=== PATIENT | male | born 1950 | race Caucasian/White ===

== ENCOUNTER 2018-05-24 00:50 | Observation (INO) | payer MEDICARE ==
[2018-05-24] MEDS ORDERED: Albuterol 2.5 MG/3 ML NEB.SOL* (0.083%) INH ONE (01:20)
[2018-05-24] MEDS ORDERED: Albuterol/Ipratropium NEB.SOL* Albuterol 2.5 MG/Ipratropium 0.5 MG 3 ML INH ONE (01:20)
[2018-05-24] MEDS ORDERED: Codeine TAB* 30 MG PO ONE (01:21)
--- NOTE | 2018-05-24 01:22 | ED ---
HPI Cardiac - HPI Summary HPI Summary: This patient is a 68 year old male presenting to [facility] accompanied by family with a chief complaint of cough and chest pain since 1 hour ago. Patient states that he was completely asymptomatic when he suddenly developed a cough. The pain is rated 6/10 in severity. Symptoms aggravated by nothing. Symptoms alleviated by nothing. Patient states that the left side of the face is numb and left side of body is generally numb, but patient can ambulate without assistance. Patient additionally reports diaphoresis. Patient denies fever, nausea. Patient reports a history of PE, hypercoagulability. Patient denies a hx of a fib. - History of Current Complaint Stated Complaint: COUGH Hx Obtained From: Patient Onset/Duration: Started Hours Ago, Still Present Timing: Constant Current Severity: Moderate Pain Intensity: 6 Pain Scale Used: 0-10 Numeric Chest Pain Location: Diffuse Chest Pain Radiates: No Aggravating Factor(s): Nothing Alleviating Factor(s): Nothing Associated Signs and Symptoms: Positive: Negative - fever, nausea, Other: - diaphoresis - Allergy/Home Medications Allergies/Adverse Reactions: Allergies Allergy/AdvReac Type Severity Reaction Status Date / Time Penicillins Allergy Unknown Verified 05/24/18 00:57 Reaction Details Home Medications: Home Medications Acetaminophen [Tylenol Extra Strength] 1,000 mg PO Q4HR PRN 05/24/18 [History Confirmed 05/24/18] Aspirin 81 mg PO DAILY 05/24/18 [History Confirmed 05/24/18] Carbidopa/Levodopa/Entacapone [Carbidopa/Levodopa/Entaca 25-100-200 mg] 2 tab PO DAILY 05/24/18 [History Confirmed 05/24/18] Carvedilol 3.125 mg PO BID 05/24/18 [History Confirmed 05/24/18] Dalteparin(*) [Fragmin(*)] 5,000 units .SEE ORDER SEE INSTRUCTIONS PRN 05/24/18 [History Confirmed 05/24/18] Gabapentin CAP(*) [Neurontin 300 CAP(*)] 600 mg PO TID 05/24/18 [History Confirmed 05/24/18] Isosorbide Mononitrate [Isosorbide Mononitrate ER] 30 mg PO DAILY 05/24/18 [ History Confirmed 05/24/18] Levothyroxine TAB* [Synthroid TAB*] 125 mcg PO DAILY 05/24/18 [History Confirmed 05/24/18] Losartan TAB* 100 mg PO DAILY 05/24/18 [History Confirmed 05/24/18] Multivitamin [Once Daily] 1 tab PO DAILY 05/24/18 [History Confirmed 05/24/18] Nitroglycerin TAB 0.4 MG* 0.4 mg SL . NEEDED PRN 05/24/18 [History Confirmed 05/24/18] Pantoprazole Sodium 40 mg PO DAILY 05/24/18 [History Confirmed 05/24/18] Ranolazine (NF) [Ranexa (NF)] 500 mg PO BID 05/24/18 [History Confirmed 05/24/18 ] Rivaroxaban TAB(*) [Xarelto 20 mg] 20 mg PO DAILY 05/24/18 [History Confirmed ] Rosuvastatin Calcium 10 mg PO DAILY 05/24/18 [History Confirmed 05/24/18] Tramadol HCl 100 mg PO Q4HR PRN 05/24/18 [History Confirmed 05/24/18] PMH/Surg Hx/FS Hx/Imm Hx Previously Healthy: No Endocrine/Hematology History: Reports: Hx Anticoagulant Therapy Cardiovascular History: Denies: Hx Atrial Fibrillation Respiratory History: Reports: Hx Pulmonary Embolism Opthamlomology History: Denies: Hx Legally Blind EENT History: Denies: Hx Deafness Infectious Disease History: No Infectious Disease History: Denies: Traveled Outside the [place] in Last 30 Days - Family History Known Family History: Positive: Hypertension - Social History Lives: With Family Alcohol Use: None Hx Substance Use: No Substance Use Type: Reports: None Hx Tobacco Use: No Smoking Status (MU): Never Smoked Tobacco Review of Systems Positive: Skin Diaphoresis. Negative: Fever Positive: Chest Pain Positive: Cough Negative: Nausea All Other Systems Reviewed And Are Negative: Yes Physical Exam - Summary Physical Exam Summary: VITAL SIGNS: Reviewed. GENERAL: Patient is a well-developed and nourished male who is lying comfortable in the stretcher. Patient is not in any acute respiratory distress. HEAD AND FACE: No signs of trauma. No ecchymosis, hematomas or skull depressions. No sinus tenderness. EYES: PERRLA, EOMI x 2, No injected conjunctiva, no nystagmus. EARS: Hearing grossly intact. Ear canals and tympanic membranes are within normal limits. MOUTH: Oropharynx within normal limits. NECK: Supple, trachea is midline, no adenopathy, no JVD, no carotid bruit, no c- spine tenderness, neck with full ROM. CHEST: Symmetric, no tenderness at palpation LUNGS: Dry cough in ED. Decreased breath sounds bilaterally CVS: Regular rate and rhythm, S1 and S2 present, no murmurs or gallops appreciated. ABDOMEN: Soft, non-tender. No signs of distention. No rebound no guarding, and no masses palpated. Bowel sounds are normal. EXTREMITIES: FROM in all major joints, no edema, no cyanosis or clubbing. NEURO: Alert and oriented x 3. No acute neurological deficits. Speech is normal and follows commands. SKIN: Dry and warm Triage Information Reviewed: Yes Vital Signs On Initial Exam: Initial Vitals Temp Pulse Resp BP Pulse Ox 98.0 F 78 16 150/92 100 05/24/18 00:50 05/24/18 00:50 05/24/18 00:50 05/24/18 00:50 05/24/18 00:50 Vital Signs Reviewed: Yes Diagnostics - Vital Signs Vital Signs Temp Pulse Resp BP Pulse Ox 05/24/18 00:50 98.0 F 78 16 150/92 100 - Laboratory Result Diagrams: 05/24/18 01:33 05/24/18 01:33 Lab Statement: Any lab studies that have been ordered have been reviewed, and results considered in the medical decision making process. - Radiology CXR Radiology Interpretation Completed By: ED Physician Summary of Radiographic Findings: CXR reveals no acute process. Pending official report. - EKG 0106 Cardiac Rate: NL EKG Rhythm: Sinus Rhythm - 73 BPM Summary of EKG Findings: An EKG, taken 0106, reveals NSR (74 BPM), 1st degree aV block, LVH, nonspecific t wave changes in inferior leads Disposition - Course Assessment/Plan: This patient is a 68 year old male presenting to [facility] accompanied by family with a chief complaint of cough and chest pain since 1 hour ago. Patient states that he was completely asymptomatic when he suddenly developed a cough. An EKG, taken 010, reveals NSR (74 BPM), 1st degree aV block , LVH, nonspecific t wave changes in inferior leads. CXR reveals no acute process. Pending official report. Bloodwork Obtained. In the ED course the patient was given albuterol, codeine, morphine, Zofran. The pt is hemodynamically stable, alert and oriented x3. We paged Dr. De Paz (Hospitalist) at 0233 to discuss patient care and possible admission. We discussed patient care with Dr. De Paz (Hospitalist) at 0303 and they agreed to admit the patient. Patient will be admitted with a dx of chest pain. The patient is agreeable with this plan. - Diagnoses Provider Diagnoses: Chest pain - Physician Notifications Discussed Care Of Patient With: Lakeisha De Paz - hospitalist Time Discussed With Above Provider: 03:03 - We discussed patient care with Dr. De Paz (Hospitalist) at 0303 and they agreed to admit the patient. Patient will be admitted with a dx of chest pain Discharge - Sign-Out/Discharge Documenting (check all that apply): Patient Departure - Discharge Plan Condition: Stable Disposition: ADMITTED TO [facility] - Attestation Statements Document Initiated by Scribe: Yes Documenting Scribe: Jet Ornelas Provider For Whom Gurpreete is Documenting (Include Credential): Anselmo Lopez MD Scribe Attestation: Jet Guadalupe, scribed for Anselmo Lopez MD on 05/24/18 at 0304. Status of Scribe Document: Ready
[2018-05-24 01:46] LABS: ABS Basophils 0 10^3/ul (0-0.2); ABS Eosinophils 0.4 10^3/ul (0-0.6); ABS Lymphocytes 2.6 10^3/ul (1.0-4.8); ABS Monocytes 0.8 10^3/ul (0-0.8); ABS Neutrophils 3.7 10^3/ul (1.5-7.7); ABS Nucleated RBC 0 10^3/ul; Eosinophil % 5.7 %; Hematocrit 43 % (42-52); Hemoglobin 14.8 g/dl (14.0-18.0); Lymphocyte % 34.8 %; Mean Corpuscular HGB Conc 34 g/dl (31-36); Mean Corpuscular Hemoglobin 31 pg (27-31); Mean Corpuscular Volume 91 fL (80-94); Mean Platelet Volume 7.2 fL (7.4-10.4); Nucleated Red Blood Cells % 0.1; Platelet Count 182 10^3/ul (150-450); Red Blood Count 4.74 10^6/ul (4.00-5.40); Red Cell Distribution Width 13 % (10.5-15); White Blood Count 7.6 10^3/ul (3.5-10.8)
[2018-05-24 02:02] LABS: ALT 24 U/L (7-52); AST 19 U/L (13-39); Albumin/Globulin Ratio 1.7 (1-3); Alkaline Phosphatase 89 U/L (34-104); Anion Gap 6 mmol/L (2-11); BUN/Creatinine Ratio 19.5 (8-20); Blood Urea Nitrogen 22 mg/dL (6-24); CO2 Carbon Dioxide 25 mmol/L (22-32); Calcium 9.4 mg/dL (8.6-10.3); Chloride 107 mmol/L (101-111); EGFR Non-African American 64.3 (>60); Globulin 2.4 g/dL (2-4); Glucose 114 mg/dL (70-100); Potassium 4.3 mmol/L (3.5-5.0); Sodium 138 mmol/L (135-145); Total Protein 6.4 g/dL (6.4-8.9)
[2018-05-24 02:07] LABS: INR 1.55 (0.77-1.02)
[2018-05-24 02:16] LABS: Activated Partial Thrombo Time 35.7 seconds (26.0-36.3)
[2018-05-24] MEDS ORDERED: Morphine VIAL* 4 MG/ML VIAL (1 ml vial) IV ONE (02:35)
[2018-05-24] MEDS ORDERED: Ondansetron INJ* 2 MG/ML VIAL IV ONE (02:35)
[2018-05-24] MEDS ORDERED: Albuterol 2.5 MG/3 ML NEB.SOL* (0.083%) INH PRN (03:06)
[2018-05-24] MEDS ORDERED: traMADol TAB* 50 MG PO PRN (03:12)
[2018-05-24] MEDS ORDERED: Nitroglycerin TAB 0.4 MG* 0.4 MG TAB SL PRN (03:12)
[2018-05-24] MEDS ORDERED: Albuterol/Ipratropium NEB.SOL* Albuterol 2.5 MG/Ipratropium 0.5 MG 3 ML INH PRN (03:19)
[2018-05-24] MEDS ORDERED: GuaiFENesin DM* 5 ML UDC PO PRN (03:19)
[2018-05-24 03:33] LABS: Alcohol < 10 mg/dL (<10)
--- NOTE | 2018-05-24 04:31 | ADMNOTE ---
Subjective Date of Service: 05/24/18 Interval History: code status full this is admission h/p pcp in [facility] ( VISITING HERE FROM [place] BUT WILL STAY UNTIL JUN 02 2018) hpi this is a 68 yr old wm with of cad with one v cabg 1999 ( 2017 stress showed patent vessel except leaky valve/ ? mr with pul htn ) paf, pe twice currently on xeralto ( would use prn dalteparin if on the flight or long distance travel ) hx of cva with residual left facial numbness/ left lateral leg numbness was brought in by family after pt was found to have chest pain followed by severe cough. pt says he was lying in bed and started to have chest pain which has been progresssively worsening for the past 3 days. intensity increased from 2-3/ 10 to 6-7/10. pain described as intermittant ( each episode would last 2-3 min ) sharp left anterior chest pain radiating down to his left arm. he took 3 sl nitro with no relief. pt started to cough which made the chest pain even worse. tonight he looked tachypenia to her [id number] who is Vet Dr. family decided to take pt to er for eval. he got morphine/zofran/albuterol/codeine from er. pt was not in any respiratory distress or tachypenia when seen but still has chest pain level 3/10. intial ekg and trop were neg chest x ray did not reveal any acute changes. phx/pshx possible copd due to hx of prn smoking himself and 2nd hand smoke from but quit 29 yrs ago cad s/p cabg with one vessel 1999 no stents placed afterwards last stress was 2016 ---> patent vessels ? mr with pul regurg pt only knows he has pul htn but says the cardio in [place] has been thinking about surgically repair if the regurg is getting worse ---> last echo was one yr ago will have repeat echo with pcp 07/2018 restless legs on sinemet and neurontin ( placed on both in [place] ) cva with residual left facial numbness/left lateral leg numbenss 03/2017 tia htn pvd spinal stenosis from l3-l5 not surg respairable with consequent le neuropathy ( lle > rle ) and sciatica hx of pe twice has been on xeralto/ prn dalteparin when on long distance travel/ flight ( hypercoag study done were neg but done in [place] ) paf gerd with hiatal hernia social hx of cig smoke prn but quit at least 30 yrs ago 2 glasses of wine twice per yr, no ivda walks indep lives in [place] fhx father parkinson one cousin has blood clot problem mom htn and cad brohter cad/pvd Review of Systems - Measurements Intake and Output: Intake and Output Last 24 Hours 05/21/18 05/22/18 05/23/18 05/24/18 06:59 06:59 06:59 06:59 Weight 168 lb - Review of Systems General Comments: pertinent as per hpi Objective Active Medications: Albuterol (Ventolin 2.5 Mg/3 Ml Neb.Anastacia*) 2.5 mg INH [id number] AWAKE PRN PRN Reason: sob/wheezing Albuterol/Ipratropium (Duoneb (Albuterol 2.5 Mg/Ipratropium 0.5 Mg)) 1 neb INH Q4H PRN PRN Reason: SOB/WHEEZING Aspirin (Aspirin 81 Mg Chew Tab*) 81 mg PO DAILY [facility] Atorvastatin Calcium (Lipitor*) 20 mg PO DAILY [facility]; Protocol Carvedilol (Coreg Tab*) 3.125 mg PO BID [facility] Gabapentin (Neurontin Cap(*)) 600 mg PO TID [facility] Guaifenesin/Dextromethorphan (Robitussin Dm*) 10 ml PO Q4H PRN PRN Reason: COUGH Sodium Chloride (Ns 0.9% 1000 Ml*) 1,000 mls @ 100 mls/hr IV PER RATE [facility] Isosorbide Mononitrate (Imdur Er Tab*) 60 mg PO DAILY [facility] Levothyroxine Sodium (Synthroid Tab*) 125 mcg PO 0600 [facility] Losartan Potassium (Cozaar Tab*) 100 mg PO DAILY [facility] Multivitamins ( Vitamin Tab*) 1 tab PO DAILY [facility] Nitroglycerin (Nitroglycerin Tab 0.4 Mg*) 0.4 mg SL .EVERY 5 MINUTES PRN PRN Reason: c/p Non-Formulary Medication (Carbidopa/Levodopa/Entacapone [Carbidopa-Levodopa 100 Mg-Enta]) 2 tab PO DAILY [facility] Omeprazole (Prilosec Cap*) 20 mg PO DAILY [facility] Ranolazine (Ranexa (Nf)) 500 mg PO BID [facility]; Protocol Rivaroxaban (Xarelto(*)) 20 mg PO DAILY [facility] Tramadol HCl (Ultram*) 100 mg PO Q4HR PRN PRN Reason: PAIN Vital Signs - 8 hr 05/24/18 05/24/18 05/24/18 00:50 01:03 01:04 Temperature 98.0 F Pulse Rate 78 84 73 Respiratory 16 Rate Blood Pressure 150/92 137/89 (mmHg) O2 Sat by Pulse 100 100 100 Oximetry 05/24/18 05/24/18 05/24/18 01:34 01:40 01:42 Temperature Pulse Rate 71 74 70 Respiratory 15 18 18 Rate Blood Pressure 155/81 (mmHg) O2 Sat by Pulse 100 100 100 Oximetry 05/24/18 05/24/18 05/24/18 02:00 02:03 02:33 Temperature Pulse Rate 68 69 74 Respiratory 10 19 11 Rate Blood Pressure 146/86 167/88 (mmHg) O2 Sat by Pulse 100 100 98 Oximetry 05/24/18 05/24/18 05/24/18 03:00 03:02 03:03 Temperature Pulse Rate 72 79 Respiratory 17 18 19 Rate Blood Pressure 159/95 (mmHg) O2 Sat by Pulse 97 98 Oximetry 05/24/18 05/24/18 03:33 03:48 Temperature 0 F Pulse Rate 72 0 Respiratory 15 0 Rate Blood Pressure 170/91 0/0 (mmHg) O2 Sat by Pulse 96 0 Oximetry Oxygen Devices in Use Now: None Appearance: nad Eyes: No Scleral Icterus, PERRLA Ears/Nose/Mouth/Throat: NL Teeth, Lips, Gums, Clear Oropharnyx, Mucous Membranes Moist Neck: NL Appearance and Movements; NL JVP, Trachea Midline, No Thyroid Enlargement, Masses Respiratory: Symmetrical Chest Expansion and Respiratory Effort, Clear to Auscultation, - - decreased b/s b/l base Cardiovascular: NL Sounds; No Murmurs; No JVD, RRR, - - no anterior chest tenderness can be elicited when pressured Abdominal: NL Sounds; No Tenderness; No Distention Extremities: No Edema, - - able to raise ue and le b/l against gravity Skin: No Rash or Ulcers Neurological: Alert and Oriented x 3, NL Muscle Strength and Tone, - - decreased left lateral leg seonsory slight otherwise non focal cranil n 2-12 grossly intact Result Diagrams: 05/24/18 01:33 05/24/18 01:33 EKG Data: ns no acute st t change seen Assess/Plan/Problems-Billing Assessment: this is a 68 yr old wm with hx of cad with possible mr with pul htn presented to er with c/o of chest pain progressively worsening for the past three days to 6-7/10. intermittant sharp type anterior chest. 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[place] and is due to see in July (2) Cough Status: Acute Code(s): R05 - COUGH SNOMED Code(s): 78638972 Comment: - Etiology unclear but seemed to respond to albuterol in ER - Not fluid overloaded - Robitussin PRN (3) CAD (coronary artery disease) Status: Acute Code(s): I25.10 - ATHSCL HEART DISEASE OF [place] CORONARY ARTERY W/O ANG PCTRS SNOMED Code(s): 56013694 Comment: plan as stated in chest pain section (4) Leaky heart valve Status: Acute Code(s): I38 - ENDOCARDITIS, VALVE UNSPECIFIED SNOMED Code(s) : 58513094 Comment: - Patient scheduled for follow up ECHO to be done in july 2018 with his cardiologis in [place] - Lungs clear, continue tele and follow stress tomorrow - May need ECHO during this admission (5) PAF (paroxysmal atrial fibrillation) Status: Acute Code(s): I48.0 - PAROXYSMAL ATRIAL FIBRILLATION SNOMED Code(s) : 598596340 Comment: - In sinus, continue xarelto (6) Pulmonary emboli Status: Acute Code(s): I26.99 - OTHER PULMONARY EMBOLISM WITHOUT ACUTE COR PULMONALE SNOMED Code(s): 41931463 Comment: - On xarelto with prn daleparin when long distance travel, continue current mgt (7) HTN (hypertension) Status: Acute Code(s): I10 - ESSENTIAL (PRIMARY) HYPERTENSION SNOMED Code(s) : 35822929 Comment: - BP improved today - Cotninue home meds and PRN hydralzine (8) PVD (peripheral vascular disease) Status: Acute Code(s): I73.9 - PERIPHERAL VASCULAR DISEASE, UNSPECIFIED SNOMED Code(s): 920559251 Comment: stable continue current mgt (9) Spinal stenosis Status: Acute Code(s): M48.00 - SPINAL STENOSIS, SITE UNSPECIFIED SNOMED Code(s): 87035737 Comment: - With peripheral neuropathy - Continue neurontin and tramadol PRN (10) CVA (cerebral vascular accident) Status: Acute Code(s): I63.9 - CEREBRAL INFARCTION, UNSPECIFIED SNOMED Code( s): 164317856 Comment: - Residual deficits, no new pathology, continue supportive care (11) TIA (transient ischemic attack) Status: Acute Code(s): G45.9 - TRANSIENT CEREBRAL ISCHEMIC ATTACK, UNSPECIFIED SNOMED Code(s): 918047880 Comment: ck his lipid otherwise mgt his underlying problems as its causes (12) Peripheral neuropathy Status: Acute Code(s): G62.9 - POLYNEUROPATHY, UNSPECIFIED SNOMED Code(s): 493314860 Comment: stable with neurontin (13) Restless leg syndrome, controlled Status: Acute Code(s): G25.81 - RESTLESS LEGS SYNDROME SNOMED Code(s): 46935558 Comment: continue sinemet and neurontin as outpt (14) Full code status Status: Acute Code(s): Z78.9 - OTHER SPECIFIED HEALTH STATUS SNOMED Code(s) : 392507962 (15) GERD (gastroesophageal reflux disease) Status: Acute Code(s): K21.9 - GASTRO-ESOPHAGEAL REFLUX DISEASE WITHOUT ESOPHAGITIS SNOMED Code(s): 780983811 Comment: - With hx of hiatal hernia, continue ppi
[2018-05-24] MEDS ORDERED: hydrALAZINE IV* 20 MG/ML VIAL IV SLOW PU PRN (04:41)
[2018-05-24] MEDS: NS 0.9% 1000 ML* 1,000 ML IV SCH ×2 (04:47→15:36)
[2018-05-24] MEDS ORDERED: hydrALAZINE IV* 20 MG/ML VIAL ONE (05:07)
[2018-05-24] MEDS ORDERED: Levothyroxine TAB* 125 MCG TAB PO SCH (06:00)
[2018-05-24 08:33] LABS: HDL Cholesterol 42.1 mg/dL
[2018-05-24] MEDS ORDERED: LEVODOPA PO SCH (09:00)
[2018-05-24] MEDS ORDERED: [UNRECOGNIZED DRUG - OTHER] PO SCH (09:00)
[2018-05-24] MEDS ORDERED: CARBIDOPA PO SCH (09:00)
[2018-05-24] MEDS ORDERED: ENTACAPONE PO SCH (09:00)
[2018-05-24] MEDS ORDERED: Isosorbide Mononitrate ER TAB* 30 MG PO SCH (09:00)
[2018-05-24 09:01] LABS: Free T4 2.52 ng/dL (0.61-1.12)
--- NOTE | 2018-05-24 09:16 | PN ---
Subjective Date of Service: 05/24/18 Interval History: Patient seen and examined. Feels tremulous, shaky and still with left sided chest pain. Discussed thyroid numbers at length. Patient states he gets his thyroid function check once per year in May only. Also states he has had 18 pound weight loss, terrible insomnia, tremors, palpitations, chest pain, poor appetite and cough increasing for the last year. Objective Active Medications: Albuterol (Ventolin 2.5 Mg/3 Ml Neb.Anastacia*) 2.5 mg INH [id number] AWAKE PRN PRN Reason: sob/wheezing Albuterol/Ipratropium (Duoneb (Albuterol 2.5 Mg/Ipratropium 0.5 Mg)) 1 neb INH Q4H PRN PRN Reason: SOB/WHEEZING Aspirin (Aspirin 81 Mg Chew Tab*) 81 mg PO DAILY [facility] Atorvastatin Calcium (Lipitor*) 20 mg PO DAILY [facility]; Protocol Carvedilol (Coreg Tab*) 3.125 mg PO BID [facility] Gabapentin (Neurontin Cap(*)) 600 mg PO TID [facility] Guaifenesin/Dextromethorphan (Robitussin Dm*) 10 ml PO Q4H PRN PRN Reason: COUGH Hydralazine HCl (Apresoline Iv*) 5 mg IV SLOW PU Q6H PRN PRN Reason: BLOOD PRESSURE Sodium Chloride (Ns 0.9% 1000 Ml*) 1,000 mls @ 100 mls/hr IV PER RATE [facility] Last Admin: 05/24/18 04:47 Dose: 100 mls/hr Isosorbide Mononitrate (Imdur Er Tab*) 60 mg PO DAILY [facility] Losartan Potassium (Cozaar Tab*) 100 mg PO DAILY [facility] Multivitamins ( Vitamin Tab*) 1 tab PO DAILY [facility] Nitroglycerin (Nitroglycerin Tab 0.4 Mg*) 0.4 mg SL .EVERY 5 MINUTES PRN PRN Reason: c/p Non-Formulary Medication (Carbidopa/Levodopa/Entacapone [Carbidopa-Levodopa 100 Mg-Enta]) 2 tab PO DAILY [facility] Omeprazole (Prilosec Cap*) 20 mg PO DAILY [facility] Ranolazine (Ranexa (Nf)) 500 mg PO BID [facility]; Protocol Rivaroxaban (Xarelto(*)) 20 mg PO DAILY [facility] Tramadol HCl (Ultram*) 100 mg PO Q4HR PRN PRN Reason: PAIN Vital Signs - 8 hr 05/24/18 05/24/18 05/24/18 01:34 01:40 01:42 Temperature Pulse Rate 71 74 70 Respiratory 15 18 18 Rate Blood Pressure 155/81 (mmHg) O2 Sat by Pulse 100 100 100 Oximetry 05/24/18 05/24/18 05/24/18 02:00 02:03 02:33 Temperature Pulse Rate 68 69 74 Respiratory 10 19 11 Rate Blood Pressure 146/86 167/88 (mmHg) O2 Sat by Pulse 100 100 98 Oximetry 05/24/18 05/24/18 05/24/18 03:00 03:02 03:03 Temperature Pulse Rate 72 79 Respiratory 17 18 19 Rate Blood Pressure 159/95 (mmHg) O2 Sat by Pulse 97 98 Oximetry 05/24/18 05/24/18 05/24/18 03:33 03:48 04:56 Temperature 0 F 98.0 F Pulse Rate 72 0 76 Respiratory 15 0 16 Rate Blood Pressure 170/91 0/0 188/82 (mmHg) O2 Sat by Pulse 96 0 98 Oximetry 05/24/18 06:44 Temperature 98.1 F Pulse Rate 76 Respiratory 18 Rate Blood Pressure 139/61 (mmHg) O2 Sat by Pulse 98 Oximetry Oxygen Devices in Use Now: None Appearance: alert, shaky, NAD Eyes: No Scleral Icterus, PERRLA Ears/Nose/Mouth/Throat: NL Teeth, Lips, Gums, - - dry oral mucosa Neck: NL Appearance and Movements; NL JVP, Trachea Midline Respiratory: Symmetrical Chest Expansion and Respiratory Effort, Clear to Auscultation Cardiovascular: NL Sounds; No Murmurs; No JVD, RRR, No Edema Abdominal: NL Sounds; No Tenderness; No Distention Extremities: No Edema, No Clubbing, Cyanosis Skin: No Rash or Ulcers Neurological: Alert and Oriented x 3, NL Sensation Nutrition: Taking PO's Result Diagrams: 05/24/18 01:33 05/24/18 01:33 EKG Data: ns no acute st t change seen Assess/Plan/Problems-Billing Assessment: This is a 68 yr old male with hx of CAD and possible MR and pulmonary htn presented to er with c/o of chest pain progressively worsening for the past three days to 6-7/10. Initital EKG and trop were neg chest pain went down to . 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[place] and is due to see in July (2) Low TSH level Code(s): R79.89 - OTHER SPECIFIED ABNORMAL FINDINGS OF BLOOD CHEMISTRY SNOMED Code(s): 340696161 Comment: - TSH 0.00 at admission; s/p thyroidectomy - Repeat TSH now, check T3 and T4 - Hold levothyroxine - Given constellation of symptoms (weight loss, anorexia, insomnia, chest pressure and palpitations), may all be related to overmedication with synthroid (3) CVA (cerebral vascular accident) Code(s): I63.9 - CEREBRAL INFARCTION, UNSPECIFIED SNOMED Code(s): 762794406 Comment: - Residual deficits, no new pathology, continue supportive care (4) Cough Code(s): R05 - COUGH SNOMED Code(s): 27825078 Comment: - Etiology unclear but seemed to respond to albuterol in ER - Not fluid overloaded - Robitussin PRN (5) GERD (gastroesophageal reflux disease) Code(s): K21.9 - GASTRO-ESOPHAGEAL REFLUX DISEASE WITHOUT ESOPHAGITIS SNOMED Code(s): 037397072 Comment: - With hx of hiatal hernia, continue ppi (6) HTN (hypertension) Code(s): I10 - ESSENTIAL (PRIMARY) HYPERTENSION SNOMED Code(s): 02502893 Comment: - BP improved today - Cotninue home meds and PRN hydralzine (7) Leaky heart valve Code(s): I38 - ENDOCARDITIS, VALVE UNSPECIFIED SNOMED Code(s): 79556667 Comment: - Patient scheduled for follow up ECHO to be done in july 2018 with his cardiologis in [place] - Lungs clear, continue tele and follow stress tomorrow - May need ECHO during this admission (8) PAF (paroxysmal atrial fibrillation) Code(s): I48.0 - PAROXYSMAL ATRIAL FIBRILLATION SNOMED Code(s): 549037054 Comment: - In sinus, continue xarelto (9) Pulmonary emboli Code(s): I26.99 - OTHER PULMONARY EMBOLISM WITHOUT ACUTE COR PULMONALE SNOMED Code(s): 90255462 Comment: - On xarelto with prn daleparin when long distance travel, continue current mgt (10) Restless leg syndrome Comment: - At baseline (11) Spinal stenosis Code(s): M48.00 - SPINAL STENOSIS, SITE UNSPECIFIED SNOMED Code(s): 41888338 Comment: - With peripheral neuropathy - Continue neurontin and tramadol PRN (12) Full code status Code(s): Z78.9 - OTHER SPECIFIED HEALTH STATUS SNOMED Code(s): 230601897 Status and Disposition: Follow stress tomorrow, anticipate DC home when medically stable.
[2018-05-24] MEDS: Carvedilol TAB* 3.125 MG PO SCH ×2 (09:49→20:03)
[2018-05-24] MEDS: Losartan TAB* 25 MG PO SCH (09:49)
[2018-05-24] MEDS: Rivaroxaban TAB(*) 20 MG TAB PO SCH (09:50)
[2018-05-24] MEDS: Gabapentin CAP(*) 300 MG PO SCH ×3 (09:50→20:02)
[2018-05-24] MEDS: Atorvastatin* 20 MG TAB PO SCH (09:50)
[2018-05-24] MEDS: Omeprazole CAP* 20 MG PO SCH (09:51)
[2018-05-24] MEDS: CMCS: Ranolazine (NF) 500 MG TAB PO SCH ×2 (09:51→20:03)
[2018-05-24] MEDS: Aspirin 81 mg CHEW TAB* 81 MG TAB.CHEW PO SCH (09:51)
[2018-05-24] MEDS: Prenatal Vitamin TAB PO SCH (09:51)
[2018-05-24] MEDS: Isosorbide Mononitrate ER TAB* 60 MG PO SCH (09:51)
[2018-05-24 10:33] LABS: Free T3 4.8 pg/mL (2.5-3.9)
[2018-05-24] MEDS ORDERED: ENTACAPONE 200 MG PO SCH (12:30)
[2018-05-24] MEDS: Carbidopa/Levodop 25/100 MG TAB(*) PO SCH (13:01)
[2018-05-24] MEDS: Acetaminophen TAB* 325 MG PO PRN (13:01)
[2018-05-25] MEDS: NS 0.9% 1000 ML* 1,000 ML IV SCH (01:48)
[2018-05-25] MEDS: Acetaminophen TAB* 325 MG PO PRN (04:08)
[2018-05-25] MEDS: Omeprazole CAP* 20 MG PO SCH (08:33)
[2018-05-25] MEDS: Rivaroxaban TAB(*) 20 MG TAB PO SCH (08:33)
[2018-05-25] MEDS: Aspirin 81 mg CHEW TAB* 81 MG TAB.CHEW PO SCH (08:33)
[2018-05-25] MEDS: Losartan TAB* 25 MG PO SCH (08:33)
[2018-05-25] MEDS: Prenatal Vitamin TAB PO SCH (08:33)
[2018-05-25] MEDS: Gabapentin CAP(*) 300 MG PO SCH ×2 (08:34→13:48)
[2018-05-25] MEDS: Atorvastatin* 20 MG TAB PO SCH (08:34)
[2018-05-25] MEDS: Carbidopa/Levodop 25/100 MG TAB(*) PO SCH (08:34)
[2018-05-25] MEDS ORDERED: ENTACAPONE 200 MG PO SCH (09:00)
[2018-05-25] MEDS: CMCS: Ranolazine (NF) 500 MG TAB PO SCH (11:56)
[2018-05-25] MEDS: Isosorbide Mononitrate ER TAB* 60 MG PO SCH (11:56)
[2018-05-25] MEDS: Carvedilol TAB* 3.125 MG PO SCH (11:56)
[2018-05-25] MEDS ORDERED: Regadenoson* 0.4 MG/5 ML SYRINGE ONE (12:04)
[2018-05-25 16:14] VITALS: BP 119/68
--- NOTE | 2018-05-28 03:12 | DS ---
CC: Dr. Roblero* DISCHARGE SUMMARY: DATE OF ADMISSION: 05/24/18 DATE OF DISCHARGE: 05/25/18 PRIMARY CARE PROVIDER: The patient's primary care provider is in [place]. The patient is here visiting. MY ATTENDING FOR THIS ADMISSION: Dr. Jacinto Roblero* (dictated by Bonnie Cheung NP). HOSPITAL COURSE: This is a 68-year-old male with a history of coronary artery disease, one-vessel CABG, paroxysmal AFib, CVA, and a history of thyroidectomy. The patient was brought in to the emergency department by his family for a complaint of chest pain. The patient states his chest pain had been worsening over the last 3 days with increased intensity. He also had somewhat of a cough and had some tachypnea while in the emergency department. The patient was admitted for rule out ACS. However, upon further examination and evaluation of the patient, the patient stated he had not had his TSH checked in some time. His TSH level was 0.00. Also, was taking 125 mcg of Synthroid daily. The patient did have a nuclear stress test on 05/25/18. His nuclear stress test had showed some apical thinning, no definite reversible or fixed changes are noted. Ejection fraction could not be obtained. The patient's chest pain resolved spontaneously. Again, upon discussing this further with the patient, he describes an 18-pound weight loss over the past couple of months, increased anxiety, insomnia, restless legs, an inability to focus, also with persistent bouts of tachycardia. All of his complaints are congruent with overmedication with Synthroid. For the 2 days that the patient was admitted, he did not have this medication and his symptoms began to resolve on their own. The patient stated his desire to be discharged to home as he was feeling much better. Given the negative stress test, negative troponins, he was deemed stable for discharge. DISCHARGE DIAGNOSES: 1. Chest pain, rule out acute coronary syndrome. 2. Low TSH level. 3. History of CVA. 4. Cough, now resolved. 5. History of gastroesophageal reflux disease. 6. History of hypertension. 7. History of leaky valve. 8. History of paroxysmal atrial fibrillation. 9. History of pulmonary embolism. 10. Restless leg syndrome. 11. History of spinal stenosis. DISCHARGE MEDICATIONS: Include: 1. Fragmin 5000 units as needed for travel. 2. Nitroglycerin 0.4 mg as needed for chest pain. 3. Xarelto 20 mg p.o. daily. 4. Acetaminophen 1000 mg p.o. q.6 hours as needed. 5. Tramadol 100 mg q.4 hours as needed. 6. Rosuvastatin calcium 10 mg p.o. daily. 7. Ranexa 500 mg p.o. b.i.d. 8. Protonix 40 mg p.o. daily. 9. Multivitamin 1 tablet daily. 10. Losartan 100 mg p.o. daily. 11. Isosorbide mononitrate 30 mg p.o. daily. 12. Gabapentin 600 mg p.o. t.i.d. 13. Carvedilol 3.125 mg p.o. b.i.d. 14. Sinemet 2 tabs p.o. daily. 15. Aspirin 81 mg daily. New Medications: Xanax 0.25 mg q.8 hours as needed for 5 days. DISPOSITION: The patient was discharged to home in the care of his family. DIET: Heart healthy as tolerated. ACTIVITY: Progress as tolerated. FOLLOWUPS: The patient was instructed to follow up with his primary care provider and his consumer lending manager in [place] on his return. I did have a very long discussion with the patient regarding his thyroid function. His Synthroid , I instructed him to hold for the following week and have his TSH rechecked. His medication should be titrated either by his primary care provider or consumer lending manager again on his return back to [place]. REVIEW OF SYSTEMS ON THE DAY OF DISCHARGE: The patient denies any fever, fatigue, or chills. No chest pain, no shortness of breath. No nausea, no vomiting. No abdominal pains and no further constitutional complaints. PHYSICAL EXAM: The patient is alert, well appearing. Vital signs are blood pressure 119/68, heart rate 74, O2 saturation 97% on room air, respiratory rate 16, temperature 97.9. HEENT: The patient is atraumatic, normocephalic. PERRLA with nonicteric sclerae. Oral mucosa is moist. Tongue is midline. Neck is supple, nontender. No JVD noted. No carotid bruit auscultated. Cardiovascular: S1, S2 present. No murmurs, gallops, or rubs noted. Rate and rhythm are regular. He has regular sinus rhythm on telemetry. Lungs are clear bilaterally to auscultation with no wheezing, rhonchi, or rales. Abdomen is soft, nontender, nondistended. Positive bowel sounds in all 4 quadrants. is deferred. Musculoskeletal: There is no clubbing, no cyanosis, and no edema. He has +2 distal pulses palpable. Full range of motion. Gross motor and sensation are intact. Neurologic: He is grossly intact with no focal deficits. Psychiatric: He is cooperative and appropriate. LABORATORY DATA: WBCs 7.6, RBCs 4.74, hemoglobin 14.8, hematocrit 43, platelets 182. Sodium 138, potassium 4.3, chloride 107, CO2 25, BUN 22, creatinine 1.13, GFR 64.3, glucose 114. Lactic acid 1.3. Calcium 9.4. Magnesium 2.0. Bilirubin 0.50, AST 19, ALT 24, alk phos 89. Troponins are negative at 0.02, 0.03, and 0.03. BNP was 54. Total protein 6.4, albumin 4.0, globulin 2.4. Triglycerides 93, total cholesterol 121, LDL cholesterol 60, HDL is 42.1. TSH on 05/24/18 was 0.00, when rechecked remained at 0.00 with a free T4 of 2.52 and a free T3 of 4.80. Again, the patient was discharged in stable condition. All questions were answered. The patient stated understanding of holding of his Synthroid medication, followups, and need for followup laboratory work to have his TSH remeasured and have his medications adjusted. TIME SPENT: 35 minutes interfacing with the patient and determining discharge plan of care. BONNIE CHEUNG NP [id number]/[facility] #: [id number] JEFERSON
== END 2018-05-25 18:30 | disposition home or self-care (01) ==
LOC: ED 00:50 → MED 03:06 → MEDTELE 03:57
PROVIDERS: ADMIT Internal Medicine; ATTEND Internal Medicine
DX: R07.9 Chest pain, unspecified (principal); R94.6 Abnormal results of thyroid function studies; Z86.73 Personal history of transient ischemic attack (TIA), and cerebral infarction without residual deficits; R05 Cough; I10 Essential (primary) hypertension; I38 Endocarditis, valve unspecified; I25.10 Atherosclerotic heart disease of native coronary artery without angina pectoris; I48.0 Paroxysmal atrial fibrillation; Z86.711 Personal history of pulmonary embolism; G25.81 Restless legs syndrome; M48.00 Spinal stenosis, site unspecified; Z87.19 Personal history of other diseases of the digestive system; Z79.82 Long term (current) use of aspirin; I26.99 Other pulmonary embolism without acute cor pulmonale; I73.9 Peripheral vascular disease, unspecified; I63.9 Cerebral infarction, unspecified; G62.9 Polyneuropathy, unspecified; Z79.01 Long term (current) use of anticoagulants; Z88.0 Allergy status to penicillin
CPT/HCPCS: 36415; 71045; 78452; 80053; 80061; 80320; 83605; 83735; 83880; 84439; 84443; 84481; 84484; 85025; 85610; 85730; 93005; 93017; 96361; 96365; 96375; 99285; A9270-GY; A9502; G0480; J0360; J2270; J2405; J2785